=== PATIENT | female | born 1955 | race Native Hawaiian/Other Pacific Islander ===

== ENCOUNTER 2019-02-05 23:27 | Emergency (ER) | payer BC ==
[~2019-02-05] VITALS: Ht 157.5 cm; Wt 106.6 kg
[2019-02-06 00:27] VITALS: BP 198/79; TEMP 97.6
== END 2019-02-06 00:28 | disposition home or self-care (01) ==
LOC: ED 23:27
DX: S63.502A Unspecified sprain of left wrist, initial encounter (principal); W19.XXXA Unspecified fall, initial encounter
CPT/HCPCS: 96372; 99283; J1885

== ENCOUNTER 2021-04-13 13:03 | Outpatient (CLI) | payer BC | END 2021-04-13 20:29 | disposition home or self-care (01) | LOC: MAMMO 13:03 → CT 13:03 | PROVIDERS: ATTEND Internal Medicine | DX: Z12.31 Encounter for screening mammogram for malignant neoplasm of breast (principal); R53.83 Other fatigue; R50.9 Fever, unspecified; R10.11 Right upper quadrant pain | CPT/HCPCS: 36415; 82565; 84520; Q9963 ==